=== PATIENT | female | born 2000 | race Caucasian/White ===

== ENCOUNTER 2021-11-19 14:17 | Emergency (ER) | payer OTHER ==
[~2021-11-19] VITALS: Ht 152.4 cm; Wt 56.6 kg
--- NOTE | 2021-11-19 15:18 | ED General ---
General Chief Complaint: - Reproductive Stated Complaint: UTI SYMPTOMS Nursing Triage Note: C/O URINARY FREQUENCY. STATES SHE FINISHED AMOXICILLIN FOR A UTI A WEEK AND A HALF AGO AND CONTINUES TO HAVE URINARY FREQUENCY AND MUCUS Source of Information: Patient Exam Limitations: No Limitations (ZHEN GARCIA) History of Present Illness Date Seen by Provider: Nov 19, 2021 Time Seen by Provider: 15:10 Initial Comments Annemarie Canseco is a 21 yo female who presents for dysuria. Pt has no past medical hx. Pt reports she is currently having constant urge to urinate. She denies pain or burning with urination, blood in urine, vaginal d/c or hx of STIs. Pt reports she had UTI earlier this month and was seen at a walk in clinic in [place], [place]. She was given a prescription for amoxicillin which she finished. She states the burning with urination did get better after abx, but the urge to urinate never went away. Pt reports her LMP was 2 weeks ago. She denies fever, chills, SOA, CP, cough, N/V/D. Modifying Factors: improves with Other (urination) Associated Systoms: Denies Symptoms (ZHEN GARCIA) Allergies and Home Medications Allergies Coded Allergies: No Known Drug Allergies (Unverified , 11/19/21) Patient Home Medication List Home Medication List Reviewed: Yes (TWIN CROWDER MD) Review of Systems Review of Systems Constitutional: No chills, No fever EENTM: No blurred vision, No vision loss Respiratory: No cough, No short of breath Cardiovascular: No chest pain, No edema Gastrointestinal: No abdominal pain, No constipation, No diarrhea Genitourinary: frequency Musculoskeletal: no symptoms reported Skin: no symptoms reported Psychiatric/Neurological: No Symptoms Reported Hematologic/Lymphatic: No Symptoms Reported Immunological/Allergic: no symptoms reported (ZHEN GARCIA) Past Hifhmfs-Veccec-Ouquln Hx Patient Social History Use of E-Cig and/or Vaping dev: Yes E-Cig or Vaping type used: Nicotine Substance use?: No Alcohol Use?: No Pt feels they are or have been: No (ZHEN GARCIA) Immunizations Up To Date Influenza Vaccine Up-to-Date: No; Not Current First/Initial COVID19 Vaccinat: DECLINED (BELEW,ZHEN A MED STUDENT) Past Medical History Last Menstrual Period: Nov 09, 2021 (ZHEN GARCIA A MED STUDENT) Physical Exam Vital Signs Vital Signs - First Documented 11/19/21 14:49 Temp 36.4 Pulse 67 Resp 18 B/P (MAP) 123/81 (95) Pulse Ox 99 O2 Delivery Room Air (TWIN CROWDER MD) Vital Signs Capillary Refill : (ZHEN GARCIA MED STUDENT) Height, Weight, BMI Height: '" Weight: lbs. oz. kg; 24.00 BMI Method: General Appearance: No Apparent Distress, WD/WN HEENT: PERRL/EOMI, Pharynx Normal Neck: Full Range of Motion, Normal Inspection Respiratory: Chest Non Tender, No Accessory Muscle Use, No Respiratory Distress Cardiovascular: Regular Rate, Rhythm Gastrointestinal: Normal Bowel Sounds, Non Tender, Soft Extremity: Normal Inspection, No Pedal Edema Neurologic/Psychiatric: Alert, Oriented x3, Normal Mood/Affect Skin: Normal Color, Warm/Dry Lymphatic: No Adenopathy (ZHEN GARCIA MED STUDENT) Progress/Results/Core Measures Suspected Sepsis SIRS Temperature: Pulse: 67 Respiratory Rate: 18 Blood Pressure 123 /81 Mean: 95 (ZHEN GARCIA MED STUDENT) Results/Orders Lab Results Laboratory Tests Test 11/19/21 14:49 Range/Units Urine Color YELLOW Urine Clarity CLEAR Urine pH 6.5 5-9 Urine Specific [place] 1.020 1.016-1.022 Urine Protein NEGATIVE NEGATIVE Urine Glucose (UA) NEGATIVE NEGATIVE Urine Ketones NEGATIVE NEGATIVE Urine Nitrite NEGATIVE NEGATIVE Urine Bilirubin NEGATIVE NEGATIVE Urine Urobilinogen 0.2 < = 1.0 MG/DL Urine Leukocyte Esterase NEGATIVE NEGATIVE Urine RBC (Auto) NEGATIVE NEGATIVE Urine RBC NONE /HPF Urine WBC RARE /HPF Urine Squamous Epithelial Cells 2-5 /HPF Urine Crystals NONE /LPF Urine Bacteria NEGATIVE /HPF Urine Casts NONE /LPF Urine Mucus NEGATIVE /LPF Urine Culture Indicated NO (TWIN CROWDER MD) My Orders Orders - TWIN CROWDER MD Ua Culture If Indicated (11/19/21 15:26) Phenazopyridine Tablet (Pyridium Tablet) (11/19/21 16:30) (TWIN CROWDER MD) Vital Signs/I&O 11/19/21 11/19/21 14:49 16:42 Temp 36.4 Pulse 67 66 Resp 18 18 B/P (MAP) 123/81 (95) 114/72 Pulse Ox 99 99 O2 Delivery Room Air Room Air (TWIN CROWDER MD) Vital Signs/I&O Capillary Refill : (ZHEN GARCIA MED STUDENT) Blood Pressure Mean: 95 Progress Note : Time: 16:18 Progress Note Bladder scan revealed 38mL. UA was unremarkable. (ZHEN GARCIA STUDENT) Progress Note : Time: 16:27 Progress Note 21yo female with complaint of dysuria and frequency. She just finished abx for UTI 2 weeks ago. That was her last menstrual period as well. No rashes, lesions, sores or concerns for STI. no n/v. no issues with bowel. HAs not trtied anything to alleviate symptoms. UA completely clear and Urine preg neg. VS and exam reassuring. I discussed trying some AZO and followup with PCP. Patient is comfortable with plan of care. ALl questions are sought and answered. (TWIN CROWDER MD) Departure Impression Primary Impression: Dysuria Disposition: 01 HOME, SELF-CARE Condition: Stable Departure-Patient Inst. Decision time for Depature: 16:30 (TWIN CROWDER MD) Referrals: [facility] [place]YSIC[place] (PCP) Primary Care Physician Patient Instructions: Dysuria, Adult (DC) Add. Discharge Instructions: drink plenty of fluids to stay well hydrated. Try over the counter AZO (pyridium) 3 times a day for bladder spasm/discomfort. If you have worsening symptoms, especially with fever, vomiting or abdominal pain - please come back for re-evaluation. Verification and Attestation of Medical Student E/M Service A medical student performed and documented this service in my presence. I reviewed and verified all information documented by the medical student and made modifications to such information, when appropriate. I personally performed the physical exam and medical decision making. Twin Crowder, Nov 20, 2021,07:16 (TWIN CROWDER MD) Copy Copies To 1: [facility]/ZEHN BUSTOS MED STUDENT Nov 19, 2021 15:18 TWIN CROWDER MD Nov 19, 2021 16:33
[2021-11-19 15:35] LABS: BILIRUBIN,URINE NEGATIVE (NEGATIVE); CLARITY,URINE CLEAR; COLOR,URINE YELLOW; GLUCOSE, URINE (UA) NEGATIVE (NEGATIVE); KETONES,URINE NEGATIVE (NEGATIVE); LEUKOCYTE ESTERASE ,URINE NEGATIVE (NEGATIVE); NITRITE,URINE NEGATIVE (NEGATIVE); PH,URINE 6.5 (5-9); PROTEIN,URINE NEGATIVE (NEGATIVE)
[2021-11-19 15:44] LABS: BACTERIA,URINE NEGATIVE /HPF; WBC,URINE RARE /HPF
[2021-11-19] MEDS ORDERED: PHENAZOPYRIDINE 100 MG (PYRIDIUM) TABLET PO ONE (16:30)
[2021-11-19 16:42] VITALS: BP 114/72
== END 2021-11-19 16:42 | disposition home or self-care (01) ==
LOC: ER 14:20
DX: R30.0 Dysuria (principal); F17.290 Nicotine dependence, other tobacco product, uncomplicated; Z87.440 Personal history of urinary (tract) infections; Z28.310 Unvaccinated for COVID-19
CPT/HCPCS: 81000; 84703; 99283